=== PATIENT | female | born 2000 | race African-American/Black ===

== ENCOUNTER 2021-03-16 14:26 | Emergency (ER) | payer SELFPAY ==
[2021-03-16 14:36] VITALS: BP 116/72; PULSE 79; RESP 16; TEMP 36.4; O2SAT 99
--- NOTE | 2021-03-16 15:07 | ED.EYEPROB ---
HPI - Eye Problem General Chief complaint: Eye Problems Stated complaint: eye pain Time Seen by Provider: 03/16/21 15:10 Source: patient and RN notes reviewed Mode of arrival: ambulatory Limitations: no limitations History of Present Illness HPI Narrative: 20-year-old female presented for complaint of right eye redness, pain, and drainage for 4 days. She states today she woke with crusting in the eye and the redness is worse. She also endorses her nephew was just treated for pinkeye. Denies FB sensation, she denies visual changes, headache, dizziness, nausea, vomiting, fever or chills. She has been using [id number] eyedrops as needed MD chief complaint: eye pain Related Data Allergies Allergy/AdvReac Type Severity Reaction Status Date / Time No Known Allergies Allergy Unknown Verified 03/16/21 14:51 Review of Systems Review of Systems: CONSTITUTIONAL: Denies body aches, fever, chills EYES:Endorses swelling, redness and pain to right eye; FB sensation, photophobia Denies visual changes ENT: Denies rhinorrhea, congestion, sore throat, or otalgia. CARDIOVASCULAR: Denies chest pain, palpitations RESPIRATORY: Denies cough or dyspnea. GASTROINTESTINAL: Denies abdominal pain, nausea, vomiting, or diarrhea. SKIN: Denies rash, itching, or wounds. MUSCULOSKELETAL: Denies back pain, joint pain, or myalgia. NEUROLOGIC: Denies headache, numbness, tingling, or weakness. PSYCH: Denies depression or anxiety. All systems reviewed & are unremarkable except as noted in HPI and below PMFSH Comments At time of signature, I have reviewed and agree with nursing past medical, surgical, social and family history unless otherwise noted. Please see nursing chart for further information. There is no relevant family history pertinent to the presenting complaint Exam Narrative: GENERAL: Well-appearing, well-nourished, and in no acute distress. HEAD: Normocephalic, atraumatic. EYES: right conjunctival injection, frequent tearing; no eye lid swelling. EOMI. Lid eversion revealed no FB ENT: Mucous membranes pink and moist. No rhinorrhea. TMs normal bilaterally. NECK: Normal AROM. Supple. No lymphadenopathy. CHEST: No respiratory distress. Clear to auscultation. HEART: Regular rate and rhythm. No murmur appreciated. Normal peripheral pulses. ABDOMEN: Soft, nontender, nondistended MUSCULOSKELETAL: No bony tenderness. EXTREMITIES: Normal range of motion. SKIN: Warm, dry, no rash. Normal skin turgor. NEURO: No focal deficits. Alert and oriented x3. Steady gait PSYCH: Normal affect. Course Course Emergency Course: Patient is aware of diagnosis, understands and agrees to treatment plan. Anticipatory guidance given. Patient agrees to follow-up as directed and is aware of reasons to seek care at the emergency department. Portions of this record may have been created with voice recognition software Level of Care: Express Care Visit Vital Signs Vital signs: Vital Signs Temperature 97.6 F 03/16/21 14:36 Pulse Rate 79 03/16/21 14:36 Respiratory Rate 16 03/16/21 14:36 Blood Pressure 116/72 03/16/21 14:36 Pulse Oximetry 99 03/16/21 14:36 Temperature 97.6 F 03/16/21 14:36 Pulse Rate 79 03/16/21 14:36 Respiratory Rate 16 03/16/21 14:36 Blood Pressure 116/72 03/16/21 14:36 Pulse Oximetry 99 03/16/21 14:36 MDM - Eye Problem Differential Diagnosis Differential diagnosis: Likely corneal abrasion, conjunctivitis, acute iritis and other Discharge Plan Discharge Clinical Impression: Bacterial conjunctivitis Patient Disposition: Home, Self-Care Condition: Stable Instructions: Antibiotic Form, Conjunctivitis (ED) Additional Instructions: Avoid touching or rubbing your eye. Use a warm or cool washcloth on your eye for comfort Use eyedrops as directed - you are contagious over the counter lubricating eye drops as needed for irritation Practice good handwashing and hygiene to prevent
== END 2021-03-16 15:20 | disposition home or self-care (01) ==
PROVIDERS: Emergency Provider Nurse Practitioner Family
DX: H10.9 Unspecified conjunctivitis (principal)
CPT/HCPCS: 99213; G0463

== ENCOUNTER 2022-02-15 14:05 | Emergency (ER) | payer OTHER, SELFPAY ==
--- NOTE | ~2022-02-15 | CT_ITS ---
EXAMINATION: CT abdomen pelvis w con INDICATION: Right-sided abdominal pain TECHNIQUE: Computed tomographic images of the abdomen and pelvis were obtained after the administrati on of 100 cc of Omnipaque 350 intravenous contrast. The dose-length product (DLP) was 1548.19 mGy-cm. Automated exposure control and iterative reconstruction technique were employed. COMPARISON: None available FINDINGS: The lung bases are clear. The heart size is normal. The liver, spleen, pancreas, gallbladde r, and adrenal glands are normal. The kidneys are unremarkable. No pathologically enlarged abdominal or pelvic lymph nodes are identified. There is no free intraperitoneal gas or evidence of bowel obstr uction. The appendix is normal. There is circumferential wall thickening of the urinary bladder. Ther e is mild lower thoracic spondylosis. Lumbar spondylosis is noted at L3-4. There is a tiny umbilical hernia containing fat. IMPRESSION: 1. Circumferential wall thickening of the urinary bladder which may reflect cystitis. Reviewed, dictated and finalized at location B. GRINDER IMPRESSION: 1. Circumferential wall thickening of the urinary bladder which may reflect cys titis.
[2022-02-15 14:09] VITALS: BP 145/90; PULSE 87; RESP 16; TEMP 36.2; O2SAT 95
[2022-02-15 14:15] VITALS: BP 141/68; PULSE 84; RESP 15; O2SAT 100
[2022-02-15 14:38] LABS: Basophils Percent Auto 0.3 % (0.2-1.2); Eosinophils Percent Auto 0.2 % (0-4.4); Hematocrit 40.2 % (37.0-47.0); Hemoglobin 11.8 g/dL (12.0-15.0); Immature Granulocyte Absolute 0.02 K/mm3 (0.00-0.031); Immature Granulocyte Percent A 0.2 % (0-0.5); Lymphocytes Absolute Auto 2.58 K/mm3 (0.9-3.2); Lymphocytes Percent Auto 26.4 % (18.3-44.2); Mean Corpuscular HGB Conc 29.4 g/dl (32-36); Mean Corpuscular Volume 74.9 fl (80-100); Mean Platelet Volume 10.1 fl (7.4-10.4); Monocytes Absolute Auto 0.6 K/mm3 (0.1-0.6); Monocytes Percent Auto 6.3 % (2.6-8.5); Neutrophils Absolute Auto 6.5 K/mm3 (1.3-6.7); Neutrophils Percent Auto 66.6 % (45.5-73.1); Platelet Count Result 349 k/mm3 (150-375); Red Blood Count 5.37 M/mm3 (4.2-5.4); Red Cell Distribution Width 16.1 % (11.5-14.5); White Blood Count 9.8 K/mm3 (4.5-10.0)
[2022-02-15 14:46] LABS: Alanine Aminotransferase 18 U/L (6-35); Albumin Level 4.4 g/dL (3.5-5.1); Alkaline Phosphatase 82 U/L (38-126); Anion Gap 4 mmol/L (8-16); Aspartate Amino Transferase 25 U/L (14-36); Bilirubin,Total 0.6 mg/dL (0.2-1.3); Blood Urea Nitrogen 11 mg/dL (7-17); Calcium 8.7 mg/dL (8.4-10.2); Carbon Dioxide 26 mmol/L (22-30); Chloride 104 mmol/L (98-107); Estimated CRCL calculation 160 ml/min; Estimated Glomerular Filt Rate > 60; Glucose 89 mg/dL (65-110); Lipase 68 U/L (23-300); Potassium 3.9 mmol/L (3.4-5.0); Sodium 134 mmol/L (137-145)
--- NOTE | 2022-02-15 14:49 | ED.ABDPAIN ---
HPI - Abdominal Pain General Chief Complaint: Abdominal Pain Stated Complaint: R side pain x 1 week Time Seen by Provider: 02/15/22 14:11 Source: RN notes reviewed History of Present Illness HPI narrative: Patient presents emergency department from home for abdominal pain. Patient states symptoms been ongoing for the past 1 week. Pain is located in the right upper quadrant does not radiate described as sharp and stabbing in nature. States it is intermittent in nature but nothing seems to make the pain better or worse she denies any fevers or chills chest pain shortness of breath nausea vomiting diarrhea or any other symptoms. States she last took ibuprofen for the pain yesterday Related Data Allergies Allergy/AdvReac Type Severity Reaction Status Date / Time No Known Allergies Allergy Unknown Verified 02/15/22 14:16 Review of Systems Review of Systems: Gen.: Denies fevers or chills ENT: Denies congestion Respiratory: Denies shortness of breath or cough CV: Denies chest pain or palpitations GI: See HPI denies burning, urgency, frequency or hematuria Musculoskeletal: Denies back pain or muscle pain Neuro: Denies numbness, tingling, weakness or focal weakness Skin: Denies rash Except as documented, all other systems reviewed and negative PMFSH Past Medical History Medical History (Updated 02/15/22 @ 15:43 by Zeyad Gastelum DO) Patient denies significant medical history Social History Social History (Updated 02/15/22 @ 14:50 by Zeyad Gastelum DO) Smoking status: Never smoker Exam Narrative: APPEARANCE: No acute distress, nontoxic, resting in bed HEENT: Normocephalic, atraumatic, OMM RESPIRATORY: No respiratory distress, clear to auscultation bilaterally with no rhonchi wheezing or rales CARDIOVASCULAR: RRR s murmur ABDOMINAL: Soft nondistended tender palpation right upper quadrant no tenderness in right lower quadrant, left lower quadrant and left upper quadrant no rebound or guarding MUSCULOSKELETAl: Moves all extremities. No clubbing, cyanosis or edema. NEURO: Awake and alert. Following commands, speech normal, no focal deficits SKIN:: Warm, dry. Normal Color PSYCHIATRIC: Normal affect/mood Course Course Emergency Course: Patient states that they are feeling much better at this time. States abdominal pain has resolved. Repeat abdominal exam shows the patient's abdomen to be soft and nontender. Discussed with patient results of workup and diagnosis. Discussed need for follow-up with primary care physician, reasons to return to the emergency department in proper use of medication. Patient understands and agrees to current treatment plan Vital Signs Vital signs: Vital Signs Temperature 97.2 F L 02/15/22 14:09 Pulse Rate 87 02/15/22 14:09 Respiratory Rate 16 02/15/22 14:09 Blood Pressure 145/90 H 02/15/22 14:09 Pulse Oximetry 95 02/15/22 14:09 Oxygen Delivery Room Air 02/15/22 14:09 Temperature 97.2 F L 02/15/22 14:09 Pulse Rate 84 02/15/22 14:15 Respiratory Rate 15 02/15/22 14:15 Blood Pressure 141/68 H 02/15/22 14:15 Pulse Oximetry 100 02/15/22 14:15 Oxygen Delivery Room Air 02/15/22 14:09 MDM - Abdominal Pain MDM Narrative Medical decision making narrative: Patient's abdomen is soft without significant pain or signs of surgical abdomen on serial exams. Lab and x-ray evaluations are reviewed and patient is felt to be a reasonable candidate for outpatient management. Patient was instructed as to limitations of x-ray and laboratory evaluation and encouraged to return to ED or primary physician for repeat exam in 12 hours if continued or worsening pain Lab Data 02/15/22 14:25 02/15/22 14:25 Labs: Lab Results 02/15/22 02/15/22 02/15/22 Range/Units 14:25 14:25 14:25 WBC 9.8 (4.5-10.0) K/mm3 RBC 5.37 (4.2-5.4) M/mm3 Hgb 11.8 L (12.0-15.0) g/dL Hct 40.2 (37.0-47.0) % MCV 74.9 L (80-100) fl MCH 22.
[2022-02-15 14:55] LABS: Anisocytosis 1+ (NORMAL); Hypochromasia 1+ (NORMAL); Ovalocytes 1+ (NORMAL); Platelet Estimate Adequate (Adequate); Schistocytes None Seen (NORMAL)
[2022-02-15] MEDS: SODIUM CHLORIDE 0.9% IV 1,000 ML 999 ML IV CONT (15:06)
[2022-02-15] MEDS: KETOROLAC 30 MG/ML VIAL (*BKC) IV PUSH (15:06)
[2022-02-15 15:28] LABS: Appearance Urine Cloudy (Clear); Bilirubin Urine Negative (Negative); Blood Urine 2+ (Negative); Color Urine Yellow (Yellow); Glucose Urine UA Negative (Negative); Ketones Urine 1+ mg/dL (Negative); Leukocyte Esterase Ur 3+ LEU/UL (Negative); Nitrate Urine Positive (Negative); Protein Urine 2+ mg/dL (Negative); Specific Grav Ur 1.025 (1.001-1.035); Urobilinogen Urine 0.2 mg/dL (<2.0)
[2022-02-15 15:54] LABS: Amorphous Sediment Urine Few; Bacteria Urine Trace /hpf; Mucus Urine Moderate /lpf; RBC Urine 21-50 /hpf (0-2); Squamous Epithelial Cell Urine Moderate /hpf (Few); WBC Clumps Urine Present /HPF; WBC Urine >75 /hpf
[2022-02-15 15:58] LABS: Add Urine Microscopic? YES
[2022-02-15 16:08] VITALS: BP 131/77; PULSE 69; RESP 16; O2SAT 100
== END 2022-02-15 16:16 | disposition home or self-care (01) ==
PROVIDERS: Emergency Provider Emergency Medicine
DX: N39.0 Urinary tract infection, site not specified (principal)
CPT/HCPCS: 36415; 74177; 80053; 81001; 81025; 83690; 85025; 87077; 87086; 87186; 96365; 96375; 99284; J0696; J1885; J7030; Q9967

== ENCOUNTER 2022-04-12 13:07 | Emergency (ER) | payer OTHER, SELFPAY ==
[2022-04-12 13:31] VITALS: BP 141/81; PULSE 82; RESP 14; TEMP 36.3; O2SAT 99
--- NOTE | 2022-04-12 16:08 | ED.FEMALEGU ---
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 Patient states she just got over her. Not too long ago. Awoke this morning and noticed pain. She denies any swelling. Denies any vaginal discharge. Last sexual intercourse was 2 to 3 weeks ago. 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 Denies any fevers, body aches, chills. Related Data Allergies Allergy/AdvReac Type Severity Reaction Status Date / Time No Known Allergies Allergy Unknown Verified 04/12/22 13:35 Review of Systems Review of Systems: CONSTITUTIONAL: Denies fever, chills, or sweats. EYES: Denies visual changes, redness, or discharge. ENT: Denies rhinorrhea, congestion, sore throat, or otalgia. CARDIOVASCULAR: Denies chest pain, palpitations, or edema. RESPIRATORY: Denies cough or dyspnea. GASTROINTESTINAL: Denies abdominal pain, nausea, vomiting, or diarrhea. GENITOURINARY: Pain to the left side of the vagina. Denies dysuria or hematuria. SKIN: Denies rash or itching. MUSCULOSKELETAL: Denies back pain, joint pain, or myalgia. NEUROLOGIC: Denies headache, numbness, dizziness, or weakness. PSYCHIATRIC: Denies anxiety or depression. PMFSH Past Medical History Medical History Patient denies significant medical history Social History Social History Smoking status: Never smoker Exam Narrative: GENERAL: Well-appearing, well-nourished, and in no acute distress. HEAD: Normocephalic, atraumatic. EYES: PERRLA and EOMI. CHEST: Clear to auscultation. No respiratory distress. No wheezes rales or rhonchi HEART: Regular rate and rhythm. No murmur heard. Normal peripheral pulses. ABDOMEN: Soft, nontender, nondistended, normal active bowel sounds. EXTREMITIES: Normal range of motion. No edema. SKIN: Warm, dry, no rash. NEURO: No focal deficits. Alert and oriented x3. PSYCH: Normal mood and affect. : General: Yes bladder normal to palpation External Female Exam: lesion (Tender cyst to the left labia majora no erythema no drainage) Speculum Exam - Vagina: normal appearance of the vagina Speculum Exam - Cervix: normal appearance of the cervix Other: [facility] present Course Vital Signs Vital signs: Vital Signs Temperature 97.4 F L 04/12/22 13:31 Pulse Rate 82 04/12/22 13:31 Respiratory Rate 14 04/12/22 13:31 Blood Pressure 141/81 H 04/12/22 13:31 Pulse Oximetry 99 04/12/22 13:31 Oxygen Delivery Room Air 04/12/22 13:31 Temperature 97.4 F L 04/12/22 13:31 Pulse Rate 82 04/12/22 13:31 Respiratory Rate 14 04/12/22 13:31 Blood Pressure 141/81 H 04/12/22 13:31 Pulse Oximetry 99 04/12/22 13:31 Oxygen Delivery Room Air 04/12/22 13:31 MDM - Female Genitourinary MDM Narrative Medical decision making narrative: 21-year-old female HPI as noted. Differentials include but not limited to Bartholin cyst, vaginal pain, vaginal tear, UTI. Patient denies any UTI symptoms such as dysuria or hematuria. Exam shows a cyst to the left labia majora without erythema or drainage noted. Patient does have an appoint with her OB tomorrow and will have that addressed then. Patient does wish to be treated for possible STDs at this time. test negative and will treat with ceftriaxone and doxycycline. Trichomonas negative. We will treat with doxycycline 100 mg twice a day for 7 days and ceftriaxone for STD prophylaxis. Patient's urine test was negative. Patient to follow-up with her OB which she has appointment with tomorrow for further management. Differential Diagnosis Differential wilian
[2022-04-12] MEDS: cefTRIAXone 1 GM VIAL 0.5 GM IM (16:28)
[2022-04-12] MEDS: DOXYCYCLINE HYCLATE 100 MG TABLET PO (16:28)
[2022-04-12 16:31] LABS: Appearance Urine Clear (Clear); Bacteria Urine None Seen /hpf; Bilirubin Urine Negative (Negative); Color Urine Yellow (Yellow); Glucose Urine UA Negative (Negative); Ketones Urine Trace mg/dL (Negative); Leukocyte Esterase Ur 2+ LEU/UL (Negative); Nitrate Urine Negative (Negative); Protein Urine Negative (Negative); Specific Grav Ur 1.015 (1.001-1.035); Squamous Epithelial Cell Urine Occasional /hpf (Few); Urobilinogen Urine 0.2 mg/dL (<2.0); WBC Urine 51-100 /hpf
[2022-04-12 16:37] VITALS: BP 130/80; PULSE 90; RESP 18; O2SAT 100
[2022-04-12 16:38] LABS: Add Urine Microscopic? YES
== END 2022-04-12 16:38 | disposition home or self-care (01) ==
PROVIDERS: Emergency Provider Nurse Practitioner Family
DX: N90.7 Vulvar cyst (principal)
CPT/HCPCS: 81001; 81025; 87070; 87077; 87086; 87186; 87491; 87591; 87808; 96372; 99284; A9270; J0696

== ENCOUNTER 2022-09-04 11:47 | Emergency (ER) | payer OTHER, SELFPAY ==
[2022-09-04 11:59] VITALS: BP 140/82; PULSE 95; RESP 16; TEMP 37.7; O2SAT 100
--- NOTE | 2022-09-04 13:14 | ED.GENADULT ---
HPI - General Adult General Chief complaint: Abdominal Pain Stated complaint: abdominal cramping Time Seen by Provider: 09/04/22 12:49 History of Present Illness HPI narrative: Patient is a 22-year-old female who presents ER with abdominal cramping. Lower abdomen midline. Ports it feels like a period cramps. She had negative test at home and a negative test here. She reports for the last 3 days she has been having dysuria. She has had a temperature of 100.0 ?F. She endorses urinary frequency and urgency. She had 1 loose stool in the last 24 hours. No known sick contacts. No vaginal discharge or vaginal bleeding. She does not believe she is at risk for STI. No reported alleviating factors. Related Data Allergies Allergy/AdvReac Type Severity Reaction Status Date / Time No Known Allergies Allergy Unknown Verified 09/04/22 11:47 Review of Systems Review of Systems: All systems reviewed & are unremarkable except as noted in HPI and below Constitutional: Constitutional: Reports chills, Reports fatigue and Reports fever(s) ENT: Denies nasal congestion and Denies sore throat Cardiovascular: Cardiovascular: Denies chest pain, Denies rapid heart rate and Denies radiating jaw, neck or arm pain Respiratory: Respiratory: Denies cough and Denies dyspnea Gastrointestinal: Gastrointestinal: Reports abdominal pain, Reports diarrhea, Denies nausea and Denies vomiting Genitourinary: Genitourinary: Denies abnormal vaginal bleeding, Reports nocturia, Reports dysuria, Denies flank pain and Denies vaginal discharge PMFSH Past Medical History Medical History (Updated 09/04/22 @ 14:51 by Malachi Lacey MD) Patient denies significant medical history Surgical History Surgical History (Updated 09/04/22 @ 13:15 by Malachi Lacey MD) No pertinent past surgical history Social History Social History Smoking status: Never smoker Exam Narrative: GENERAL: Well-appearing, well-nourished, and in no acute distress. HEAD: Normocephalic, atraumatic. EYES: PERRL and EOMI. ENT: Mucous membranes moist. CHEST: Clear to auscultation. No respiratory distress. HEART: Regular rate and rhythm. Normal peripheral pulses. ABDOMEN: Soft, nontender but reports discomfort left upper quadrant and right lower quadrant, nondistended. EXTREMITIES: Normal range of motion. No edema. SKIN: Warm, dry, no rash. NEURO: Alert and oriented x3. PSYCH: Normal mood and affect. Course Course Emergency Course: Patient resting comfortably. Educated on results. Discussed treatment plan including oral antibiotics and patient verbalized understanding. Vital Signs Vital signs: Vital Signs Temperature 99.8 F H 09/04/22 11:59 Pulse Rate 95 09/04/22 11:59 Respiratory Rate 16 09/04/22 11:59 Blood Pressure 140/82 09/04/22 11:59 Pulse Oximetry 100 09/04/22 11:59 Oxygen Delivery Room Air 09/04/22 11:59 Temperature 99.8 F H 09/04/22 11:59 Pulse Rate 95 09/04/22 11:59 Respiratory Rate 16 09/04/22 11:59 Blood Pressure 140/82 09/04/22 11:59 Pulse Oximetry 100 09/04/22 11:59 Oxygen Delivery Room Air 09/04/22 11:59 Medical Decision Making Vital Signs Vital Signs: Vital Signs Temperature 99.8 F H 09/04/22 11:59 Pulse Rate 95 09/04/22 11:59 Respiratory Rate 16 09/04/22 11:59 Blood Pressure 140/82 09/04/22 11:59 Pulse Oximetry 100 09/04/22 11:59 Oxygen Delivery Room Air 09/04/22 11:59 Temperature 99.8 F H 09/04/22 11:59 Pulse Rate 95 09/04/22 11:59 Respiratory Rate 16 09/04/22 11:59 Blood Pressure 140/82 09/04/22 11:59 Pulse Oximetry 100 09/04/22 11:59 Oxygen Delivery Room Air 09/04/22 11:59 Lab Data 09/04/22 13:22 09/04/22 13:22 Labs: Lab Results 09/04/22 Range/Units 13:22 WBC 10.4 H (4.5-10.0) K/mm3 RBC 5.11 (4.2-5.4) M/mm3 Hgb 11
[2022-09-04 13:44] LABS: Basophils Percent Auto 0.3 % (0.2-1.2); Eosinophils Percent Auto 0.1 % (0-4.4); Hematocrit 37.6 % (37.0-47.0); Immature Granulocyte Absolute 0.04 K/mm3 (0.00-0.031); Immature Granulocyte Percent A 0.4 % (0-0.5); Lymphocytes Absolute Auto 1.57 K/mm3 (0.9-3.2); Lymphocytes Percent Auto 15.1 % (18.3-44.2); Mean Corpuscular HGB Conc 29.3 g/dl (32-36); Mean Corpuscular Hemoglobin 21.5 pg (26-34); Mean Corpuscular Volume 73.6 fl (80-100); Mean Platelet Volume 10.3 fl (7.4-10.4); Monocytes Absolute Auto 1.1 K/mm3 (0.1-0.6); Monocytes Percent Auto 10.3 % (2.6-8.5); Neutrophils Absolute Auto 7.7 K/mm3 (1.3-6.7); Neutrophils Percent Auto 73.8 % (45.5-73.1); Platelet Count Result 284 k/mm3 (150-375); Red Blood Count 5.11 M/mm3 (4.2-5.4); Red Cell Distribution Width 16.7 % (11.5-14.5); White Blood Count 10.4 K/mm3 (4.5-10.0)
[2022-09-04 14:07] LABS: Appearance Urine Turbid (Clear); Bacteria Urine 4+ /hpf; Bilirubin Urine Negative (Negative); Blood Urine 3+ (Negative); Color Urine Dark Yellow (Yellow); Glucose Urine UA Negative (Negative); Ketones Urine 1+ mg/dL (Negative); Leukocyte Esterase Ur 3+ LEU/UL (Negative); Need Manual Microscopic Reviewed; Nitrate Urine Negative (Negative); Protein Urine 2+ mg/dL (Negative); RBC Urine >100 /hpf (0-2); Specific Grav Ur 1.021 (1.001-1.035); Squamous Epithelial Cell Urine Few /hpf (Few); WBC Urine >100 /hpf; pH Urine 6.5 (5.0-9.0)
[2022-09-04 14:15] LABS: Add Urine Microscopic? YES
[2022-09-04 14:56] LABS: Alanine Aminotransferase 19 U/L (6-35); Alkaline Phosphatase 72 U/L (38-126); Anion Gap 4 mmol/L (8-16); Aspartate Amino Transferase 45 U/L (14-36); Bilirubin,Total 0.6 mg/dL (0.2-1.3); Blood Urea Nitrogen 7 mg/dL (7-17); Calcium 8.3 mg/dL (8.4-10.2); Carbon Dioxide 26 mmol/L (22-30); Chloride 106 mmol/L (98-107); Estimated CRCL calculation 139 ml/min; Estimated Glomerular Filt Rate > 60; Glucose 93 mg/dL (65-110); Lipase 84 U/L (23-300); Potassium 3.3 mmol/L (3.4-5.0); Sodium 136 mmol/L (137-145)
== END 2022-09-04 15:00 | disposition home or self-care (01) ==
PROVIDERS: Emergency Medicine; Emergency Provider Emergency Medicine
DX: N39.0 Urinary tract infection, site not specified (principal)
CPT/HCPCS: 36415; 80053; 81001; 81025; 83690; 85025; 87077; 87086; 87186; 99283